=== PATIENT | male | born 1975 | race Caucasian/White ===

== ENCOUNTER 2022-08-22 07:52 | Emergency (ER) | payer MEDICAID ==
[~2022-08-22] VITALS: Ht 175.3 cm; Wt 74.8 kg
--- NOTE | 2022-08-22 07:55 | NUR ---
BIB [facility] [address] AND [employer], FOUND ROLLING IN THE DIRT/AGITATED, 5 MG IM VERSED GIVEN. PT ATTACHED TO MONITOR, VITALS ARE WITHIN NORMAL LIMITS, PT IS ON 2L NC SATTING AT 99%. PT IS A&OX0. BLOOD GLUCOSE UPON ADMISSION 54, MD AWARE, DEXTROSE 50% ORDERED. DR BAHENA AT BEDSIDE.
--- NOTE | 2022-08-22 08:05 | NUR ---
PT CLEANED AND PLACED IN HOSPITAL GOWN
--- NOTE | 2022-08-22 08:09 | NUR ---
IV ESTABLISHED L HAND 18. LABS DRAWN AND COLLECTED AT BEDSIDE.
--- NOTE | 2022-08-22 08:18 | NUR ---
URINE COLLECTED VIA IN AND OUT CATHETER, URINE COLLECTED AND SENT.
[2022-08-22] MEDS ORDERED: DEXTROSE 50%-WATER 50 ML DISP.SYRIN ONE (08:22)
[2022-08-22] MEDS ORDERED: NALOXONE PREFILLED SYRINGE 2 MG/2 ML SYRINGE ONE (08:22)
[2022-08-22] MEDS ORDERED: ONDANSETRON HCL/PF 4 MG/2 ML VIAL ONE (08:22)
--- NOTE | 2022-08-22 08:24 | NUR ---
PT RECIVED 1MG OF NARCAN, PT OPENED HIS EYES, NONVERBAL, VOLUNTARY BODY MOVEMENTS.
[2022-08-22] MEDS ORDERED: IV NS 0.9% 1,000 ML IV ONE (08:30)
[2022-08-22] MEDS ORDERED: DEXTROSE 50%-WATER 50 ML DISP.SYRIN IVP ONE (08:30)
[2022-08-22] MEDS ORDERED: ONDANSETRON HCL/PF 4 MG/2 ML VIAL IVP ONE (08:30)
[2022-08-22] MEDS ORDERED: NALOXONE HCL 0.4 MG/ML AMPUL IV ONE (08:30)
[2022-08-22 08:31] LABS: BASOPHILS # (AUTO) 0.1 K/uL (0.0-0.2); BASOPHILS % (AUTO) 0.6 % (0.0-2.0); EOSINOPHILS % (AUTO) 0.1 % (0.0-6.0); HEMATOCRIT 30 % (39-51); HEMOGLOBIN 9.5 g/dL (13.5-17.5); LYMPHOCYTES # (AUTO) 1.1 K/uL (0.8-4.8); LYMPHOCYTES % (AUTO) 7.7 % (20.0-44.0); MEAN CORPUSCULAR HGB CONC 32 g/dl (31.0-36.0); MEAN CORPUSCULAR VOLUME 82 fL (80-96); MONOCYTES # (AUTO) 0.6 K/uL (0.1-1.30); MONOCYTES % (AUTO) 4.2 % (2.0-12.0); NEUTROPHILS # (AUTO) 12.3 K/uL (1.8-8.9); NEUTROPHILS % (AUTO) 87.4 % (43.0-81.0); PLATELET COUNT (AUTO) 314 K/uL (150-450); RED BLOOD CELL COUNT(AUTO) 3.62 MIL/uL (4.5-6.0); WHITE BLOOD COUNT (AUTO) 14.1 K/uL (4.3-11.0)
--- NOTE | 2022-08-22 08:32 | NUR ---
PT TAKEN TO CT VIA DOMONIQUE
--- NOTE | 2022-08-22 08:38 | NUR ---
CT CALLED, UNABLE TO TAKEN CT BECAUSE PT IS MOVING, DR BAHENA IS AWARE.
[2022-08-22 08:45] LABS: CALCIUM, SERUM 7.9 mg/dL (8.5-10.1); CARBON DIOXIDE 25 mmol/L (21-32); CHLORIDE 98 mmol/L (98-107); CREATININE 2.2 mg/dL (0.6-1.3); GLUCOSE 55 mg/dL (74-106); POTASSIUM 3.6 mmol/L (3.5-5.1); SODIUM SERUM 134 mmol/L (136-145); UREA NITROGEN, BLOOD 36 mg/dL (7-18)
[2022-08-22 08:51] LABS: ALANINE AMINOTRANSFERASE 42 U/L (12-78); ALBUMIN 3.1 g/dL (3.4-5.0); ALCOHOL, BLOOD < 3 mg/dL (0-0); ALKALINE PHOSPHATASE 94 U/L (46-116); ASPARTATE AMINOTRANSFERASE 88 U/L (15-37); BILIRUBIN,DIRECT 0.1 mg/dL (0.0-0.2); BILIRUBIN,TOTAL 0.4 mg/dL (0.2-1.0); TOTAL PROTEIN, SERUM 6.9 g/dL (6.4-8.2)
[2022-08-22 09:35] LABS: BILIRUBIN,URINE NEGATIVE (NEGATIVE); COLOR,URINE YELLOW (YELLOW); LEUKOCYTE ESTERASE ,URINE NEGATIVE (NEGATIVE); NITRITE, URINE NEGATIVE (NEGATIVE); PH,URINE 5.5 (5.0-8.0); PROTEIN,URINE 100 mg/dl (NEGATIVE); UGLUCOSE NEGATIVE (NEGATIVE); UROBILINOGEN,URINE 0.2 EU/dL (0.2)
[2022-08-22 09:56] LABS: BACTERIA,URINE 2+ /HPF (None Seen)
--- NOTE | 2022-08-22 11:31 | NUR ---
BLOOD SUGAR IS 76, MD AWARE.
--- NOTE | 2022-08-22 16:14 | NUR ---
PT IS AWAKE AND ALERT, ADMITS TO TAKING FENTANYL. PT PROVIDED WITH JUICE AND FOOD.
[2022-08-22] MEDS ORDERED: NALO4SPR BNOSTRILS (16:21)
--- NOTE | 2022-08-22 16:53 | NUR ---
IV removed. Catheter intact and site benign. Pressure and 4x4 applied to site. No bleeding noted.Patient discharged to home in stable condition. Written and verbal after care instructions given. Patient verbalizes understanding of instruction.
[2022-08-22 16:54] VITALS: BP 157/94
== END 2022-08-22 16:54 | disposition home or self-care (01) ==
LOC: ER 07:54
DX: T40.601A Poisoning by unspecified narcotics, accidental (unintentional), initial encounter (principal); R41.82 Altered mental status, unspecified; F15.129 Other stimulant abuse with intoxication, unspecified; Y92.89 Other specified places as the place of occurrence of the external cause
CPT/HCPCS: 99285; 96374; 96361; 96375; 71045; 72125; 70450; 85025; 80048; 87086; 80076; 81001; 36415; 82962; 80320; 80307; J2405; J7030; J2310; G0480